=== PATIENT | female | born 1975 | race Caucasian/White ===

== ENCOUNTER 2023-06-11 15:35 | Emergency (ER) | payer SELFPAY ==
[2023-06-11] MEDS ORDERED: Ondansetron 4 MG Tab.DIS PO ONE (16:03)
[2023-06-11] MEDS ORDERED: Morphine 2 MG/ML SYRINGE IM ONE (16:03)
[2023-06-11] MEDS ORDERED: Morphine 4 MG/ML VIAL ONE (16:04)
[2023-06-11] MEDS ORDERED: Ondansetron 4 MG Tab.DIS ONE (16:04)
[2023-06-11] MEDS ORDERED: Acetaminophen/HYDROcodone 325-5 MG Tab PO STA (16:30)
[2023-06-11] MEDS ORDERED: methylPREDNISolone Sodium Succinate 125 MG/2 ML SDV IM ONE (16:31)
[2023-06-11] MEDS ORDERED: methylPREDNISolone Sodium Succinate 125 MG/2 ML SDV ONE (16:34)
[2023-06-11] MEDS ORDERED: Sodium Chloride 0.9% 10 ML Syringe FLUSH PRN (17:47)
[2023-06-11] MEDS ORDERED: fentaNYL 100 MCG/2 ML SDV ONE (17:54)
[2023-06-11] MEDS ORDERED: fentaNYL 100 MCG/2 ML SDV IVPUSH SCH (18:00)
[2023-06-11] MEDS ORDERED: Acetaminophen/HYDROcodone 325-5 MG Tab ONE (18:25)
[2023-06-11 19:21] VITALS: BP 139/78; PULSE 88
== END 2023-06-11 18:31 | disposition home or self-care (01) ==
LOC: LB.ED 15:35
DX: S60.211A Contusion of right wrist, initial encounter (principal); W00.0XXA Fall on same level due to ice and snow, initial encounter
CPT/HCPCS: 29125; 73110-RT; 96372; 96374; 99283-25; A9270-GY; J2270; J2930; J3010; Q0162